=== PATIENT | male | born 1975 | race Caucasian/White ===

== ENCOUNTER → 2021-12-20 | Outpatient (CLI) | payer BC ==
[2021-12-20 16:31] LABS: African American GFR (CKD) 75.8 (60.0-200.0); BUN/Creat Ratio 22.38 Ratio (12.00-20.00); Blood Urea Nitrogen 29.1 mg/dL (9.0-27.0); Non-African American GFR(CKD) 65.4 (60.0-200.0); Potassium 5.1 mmol/L (3.5-5.5)
== END | disposition home or self-care (01) ==
LOC: LABWHC1 09:20
PROVIDERS: ATTEND Internal Medicine Clinical Cardiac Electrophysiology
DX: I10 Essential (primary) hypertension (principal)
CPT/HCPCS: 36415; 80048

== ENCOUNTER → 2022-02-06 | Outpatient (CLI) | payer BC ==
--- NOTE | 2022-02-06 11:26 | P.SLEEP ---
History of Present Illness DATE: 02/06/2022 CONSULTATION/NEW PATIENT EVALUATION HISTORY OF PRESENT ILLNESS/SLEEP-WAKE EVALUATION: 46year old gentleman had been evaluated in the sleep center for possible obstructive sleep apnea hypopnea syndrome. SLEEP SCHEDULE: Usually sleep schedule 7 days a week from 11 PM to 6:30 AM. FALLING ASLEEP: No problems with the falling asleep, although patient has TV set and bedroom. DURING SLEEP: Patient snores according to his . He rarely wakes up from sleep. No history of hypnogogical hallucinations, sleep paralysis, or cataplexy. DURING THE DAY/WAKE STATE: Patient denies significant sleepiness. [place] sleepiness scale is to. He doesn't take naps. PAST MEDICAL HISTORY: CHF possibly secondary to a viral infection with coxsackie and parvovirus in November 2021, hypertension. PAST SURGICAL HISTORY: [place] tooth removed. MEDICATIONS: Eliquis 5 mg twice a day, entresto 24 mg twice a day, carvedilol 12.5 mg twice a day, spironolactone 25 mg once a day, furosemide 20 mg once a day. SOCIAL HISTORY: Negative for smoking smoking, alcohol consumption occasional. FAMILY HISTORY: Cancer, heart problems. REVIEW OF SYSTEMS: Snoring. No fevers. No double vision. No recent chest pain. No shortness of breath. No abdominal pain. No bleeding episodes. No blood in urine. No seizure episodes. PHYSICAL EXAMINATION: GENERAL: A pleasant patient without any distress. VITAL SIGNS: BP 152/106 , HR 87 , RR 18 , weight to 21.6 pounds, height 5 foot 11.25 inches, body mass index 30.6 . HEENT: PERRLA, EOMI. Evaluation of oropharynx showed tongue protrudes midline, low position of soft palate Mallampati 4. Retrognathia 2 mm. NECK: Supple. No JVD. Thyroid is not palpable. 17-1/3 inches in circumference. LUNGS: Clear to percussion and to auscultation. Good air exchange. No wheezing or rhonchi. HEART: S1, S2 regular. No murmurs, gallops or rubs. ABDOMEN: Soft and nontender. Bowel sounds are present. No organomegaly appreciated. EXTREMITIES: No clubbing or cyanosis. 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 Cranial nerves 2 to 7 intact. There is no fasciculation or atrophy noted. No focal deficits observed. ASSESSMENT: 1. Snoring, extremely low position of soft palate Mallampati 4, wide neck 17-1/3 inches in circumference, retrognathia. Possible obstructive sleep apnea hypopnea syndrome. 2. Mild obesity fallowing body mass index criteria. Body mass index 30.6. 3 history of CHF. 4. History of viral infection with parvovirus and coxsackievirus involving heart in November 2021. 5 hypertension. PLAN: 1. Home sleep apnea test. 2. CPAP/BiPAP titration if sleep study confirms obstructive sleep apnea- hypopnea syndrome. 3. Preferable position during sleep on the side. 4. No driving if patient feels any sleepiness. Patient is aware of civil and criminal liability for unsafe driving. 5. Sleep hygiene with regular sleep time for at least 7.5-8 hours. 6. Watching weight. Thank you very much for referring this patient for consultation. Sincerely, Rosalio Neil MD, PhD, FAASM. Diplomat of [place] [employer], Sleep Medicine Board by [place] [employer] [place] [employer] Operator of [facility] [place] Past Medical History Past Medical History: No Reported History History of Any Multi-Drug Resistant Organisms: None Reported Past Surgical History: No Surgical Hx Reported Past Anesthesia/Blood Transfusion Reactions: No Reported Reaction Past Psychological History: No Psychological Hx Reported Smoking Status: Never smoker Past Alcohol Use History: None Reported Past Drug Use History: None Reported Medications and Allergies Home Medications Medication Instructions Recorded Confirmed Type Apixaban [Eliquis] 5 mg PO BID #60 tab 11/29/21 Rx Furosemide [Lasix] 20 mg PO DAILY #90 tab 11/29/21 Rx Sacubitril/Valsartan [Entresto 24 1 each PO BID #60 tab 11/29/21 Rx mg-26 mg Tablet] Spironolactone [Aldactone] 25 mg PO DAILY #90 tab 11/29/21 Rx carvediloL [Coreg] 6.25 mg PO BID-W/MEALS #60 tab 11/29/21 Rx Allergies Allergy/AdvReac Type Severity Reaction Status Date / Time No Known Allergies Allergy Verified 11/26/21 17:41 Sleep Note - Sleep Note Sleep Note: Temperature: Pulse Rate: Respiratory Rate: Blood Pressure: SpO2: Height: Weight: BMI: Neck Circumference:
== END ==
LOC: SLEEP 10:22
PROVIDERS: ATTEND Internal Medicine
DX: G47.33 Obstructive sleep apnea (adult) (pediatric) (principal); E66.8 Other obesity; Z68.30 Body mass index [BMI] 30.0-30.9, adult; I10 Essential (primary) hypertension; Z86.79 Personal history of other diseases of the circulatory system; Z86.19 Personal history of other infectious and parasitic diseases
CPT/HCPCS: 99211

== ENCOUNTER → 2022-03-21 | Outpatient (CLI) | payer BC ==
[2022-03-22 02:32] LABS: African American GFR (CKD) 97.5 (60.0-200.0); Anion Gap 13.2 mmol/L (10.00-18.00); BUN/Creat Ratio 18.76 Ratio (12.00-20.00); Blood Urea Nitrogen 19.7 mg/dL (9.0-27.0); Calcium 9.6 mg/dL (8.7-10.3); Carbon Dioxide 18.8 mmol/L (20.0-27.5); Magnesium 2.1 mg/dL (1.5-2.4); Non-African American GFR(CKD) 84.1 (60.0-200.0); Potassium 4.6 mmol/L (3.5-5.5)
[2022-03-24 13:34] LABS: Parvovirus B-19 IgG Antibodies 5.92 INDEX (<=0.90); Parvovirus B-19 IgM Antibodies 0.57 INDEX (<=0.90)
== END | disposition home or self-care (01) ==
LOC: LABWHC1 12:52
PROVIDERS: ATTEND Nurse Practitioner Adult Health
DX: I10 Essential (primary) hypertension (principal); I42.8 Other cardiomyopathies
CPT/HCPCS: 36415; 80048; 83735; 86658; 86747

== ENCOUNTER → 2022-07-17 | Outpatient (CLI) | payer BC ==
--- NOTE | 2022-07-17 15:36 | P.PN ---
Subjective DATE: 07/17/2022 FOLLOW UP VISIT. Patient with obstructive sleep apnea hypopnea syndrome return to sleep center for follow-up visit. Recently patient had sleep study which documented obstructive sleep apnea hypopnea syndrome. Patient was initiated on PAP therapy and today is first visit after treatment was started. I explained results of sleep studies to patient in details. Patient was able to use PAP equipment every night for the whole night. The patient does not have significant problems with the mask, PAP pressure and humidification. [place] sleepiness scale is 4. Recently patient ejection fraction improved from 10% to around 51%. I checked information from PAP unit. PAP unit pressure 5-12, average 9.9 cm H2O. Usage in May is 79 % , average 4.5 hours per night. Leak is 5.0 l/m, which is in acceptable range. Apnea Hypopnea Index is 1.2, which is normal. During physical exam: GENERAL: A pleasant patient without any distress. VITAL SIGNS: BP 177/95, HR 95, RR 16, weight 236.6, temperature 98.4, oxygen saturation at room air 95. HEENT: PERRLA, EOMI.low position of soft palate, Mallapati 4 . NECK: Supple. No JVD. LUNGS: Clear to percussion and to auscultation. Good air exchange. No wheezing or rhonchi. HEART: S1, S2 regular. ABDOMEN: Soft and nontender.[] EXTREMITIES: No clubbing or cyanosis. TIMBER FALLER: Awake, alert, and oriented x3. No focal deficit. Impressions: 1. Obstructive sleep apnea-hypopnea syndrome. Patient demonstrated borderline compliance with treatment, benefiting from treatment. 2. Obesity, patient increased his weight on 20 pounds comparing to the previous visit. 3. History of viral myocarditis in 2021, ejection fraction normalized. 4. Hypertension. Plan: 1. Continue using PAP equipment every night for the whole night. 2. To change air filter at least 1-2 times per month. 3. PAP unit should stay lower then position of the head. 4. Advised patient to remove all remaining water from humidifier canister daily and make it dry after each usage. Refill canister with fresh distilled water before each usage. 5. Sleep hygiene with regular time in bed for at least 8 hours. 6. Precautions related to driving. No driving if feel any sleepiness. 7. I will maintain prescription for PAP supplies including mask, tube, filters. 8. Watching weight. 9. Follow up visit in 6 months or earlier if patient has any problems. Thank you very much for allowing me to participate in the management of your patient. Rosalio Neil MD, PhD, FAASM. Diplomat of [place] [employer], Sleep Medicine Board by [place] [employer] Manager of [facility] [place]
== END | disposition home or self-care (01) ==
LOC: SLEEP 13:52
PROVIDERS: ATTEND Internal Medicine
DX: G47.33 Obstructive sleep apnea (adult) (pediatric) (principal); E66.9 Obesity, unspecified; I10 Essential (primary) hypertension; Z99.89 Dependence on other enabling machines and devices; Z86.79 Personal history of other diseases of the circulatory system

== ENCOUNTER 2023-06-16 22:54 | Emergency (ER) | payer BC ==
[2023-06-16] MEDS: FLUORESCEIN STRIPS 1 MG STRIP LEFT EYE ONE (23:31)
[2023-06-16] MEDS: PROPARACAINE 0.5% OPHTH DROPS 15 ML BTL BOTH EYES SCH (23:31)
--- NOTE | 2023-06-16 23:43 | ED ---
General Adult HPI - General Chief complaint: Eye Problems Stated complaint: FB in left eye Time Seen by Provider: 06/16/23 23:18 Source: patient, RN notes reviewed, old records reviewed Mode of arrival: ambulatory Limitations: no limitations - History of Present Illness Initial comments: 48-year-old male presents with left eye irritation and pain. 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 His eye has been irritated and draining. No other injury reported. Patient uncertain of last tetanus. - Related Data Previous Rx's Medication Instructions Recorded Apixaban [Eliquis] 5 mg PO BID #60 tab 11/29/21 Furosemide [Lasix] 20 mg PO DAILY #90 tab 11/29/21 Sacubitril/Valsartan [Entresto 24 1 each PO BID #60 tab 11/29/21 mg-26 mg Tablet] Spironolactone [Aldactone] 25 mg PO DAILY #90 tab 11/29/21 carvediloL [Coreg] 6.25 mg PO BID-W/MEALS #60 tab 11/29/21 Allergies Allergy/AdvReac Type Severity Reaction Status Date / Time No Known Allergies Allergy Verified 06/16/23 23:13 Review of Systems ROS Statement: Those systems with pertinent positive or pertinent negative responses have been documented in the HPI. ROS Other: All systems not noted in ROS Statement are negative. Past Medical History Past Medical History: No Reported History History of Any Multi-Drug Resistant Organisms: None Reported Past Surgical History: No Surgical Hx Reported Past Anesthesia/Blood Transfusion Reactions: No Reported Reaction Past Psychological History: No Psychological Hx Reported Smoking Status: Never smoker Past Alcohol Use History: None Reported Past Drug Use History: None Reported General Exam Limitations: no limitations General appearance: alert, in no apparent distress Head exam: Present: atraumatic, normocephalic Eye exam: Present: other (Metallic foreign body embedded within the left upper eyelid, associated corneal abrasion. Negative Lukas's.) Respiratory exam: Absent: respiratory distress Cardiovascular Exam: Present: regular rate, normal rhythm GI/Abdominal exam: Absent: distended Extremities exam: Present: normal inspection Course Vital Signs 06/16/23 23:11 Temperature 98.3 F Pulse Rate 85 Respiratory 18 Rate Blood Pressure 174/97 O2 Sat by Pulse 97 Oximetry Procedures - Forgein Body Removal Eye Site: Left Anesthetic Used: Proparacaine Eye Exam Technique: Urban Lamp, Fluorescein Foreign Body Suspected: Metal Forgein Body Removal Technique: Cotton Swab Remaining Debris: No Patient Tolerated: well Medical Decision Making - Medical Decision Making Was pt. sent in by a medical professional or institution (KRUNAL Perry, PHOTOENGRAVER APPRENTICE, urgent care, hospital, or halfway...) When possible be specific @ -No Did you speak to anyone other than the patient for history (EMS, parent, family, police, friend...)? What history was obtained from this source @ -No Did you review nursing and triage notes (agree or disagree)? Why? @ -I reviewed and agree with nursing and triage notes Were old charts reviewed (outside hosp., previous admission, EMS record, old EKG, old radiological studies, urgent care reports/EKG's, halfway records)? Report findings @ -No old charts were reviewed Differential Diagnosis (chest pain, altered mental status, abdominal pain women, abdominal pain men, vaginal bleeding, weakness, fever, dyspnea, syncope, headache, dizziness, GI bleed, back pain, seizure, CVA, palpatations, mental health, musculoskeletal)? @ -Intraocular foreign body, corneal abrasion, angle-closure glaucoma EKG interpreted by me (3pts min.). @ -As above X-rays interpreted by me (1pt min.). @ -None done CT interpreted by me (1pt min.). @ -None done U/S interpreted by me (1pt. min.). @ -None done What testing was considered but not performed or refused? (CT, X-rays, U/S, labs)? Why? @ -None What meds were considered but not given or refused? Why? @ -None Did you discuss the management of the patient with other professionals (professionals i.e. KRUNAL Perry, PHOTOENGRAVER APPRENTICE, lab, RT, psych nurse, health and social care teacher, sound person, teacher, youth probation officer, transplant case manager)? Give summary @ -No Was smoking cessation discussed for >3mins.? @ -No Was critical care preformed (if so, how long)? @ -No Were there social determinants of health that impacted care today? How? (Homelessness, low income, unemployed, alcoholism, drug addiction, transportation, low edu. Level, literacy, decrease access to med. care, fpc, rehab)? @ -No Was there de-escalation of care discussed even if they declined (Discuss DNR or withdrawal of care, Hospice)? DNR status @ -No What co-morbidities impacted this encounter? (DM, HTN, Smoking, COPD, CAD, Cancer, CVA, ARF, Chemo, Hep., AIDS, mental health diagnosis, sleep apnea, morbid obesity)? @ -None Was patient admitted / discharged? Hospital course, mention meds given and route, prescriptions, significant lab abnormalities, going to OR and other pertinent info. @ -[48-year-old male with metallic foreign body in the left upper eyelid and associated underlying corneal abrasion. Eye exam shows corneal abrasion without corneal laceration, negative Lukas's test. Patient feels 100% better after proparacaine. He is given erythromycin ointment. His tetanus is updated. He will follow-up with ophthalmology for reevaluation. Undiagnosed new problem with uncertain prognosis? @ -No Drug Therapy requiring intensive monitoring for toxicity (Heparin, Nitro, Insulin, Cardizem)? @ -No Were any procedures done? @Yes, foreign body removed from the left eyelid Diagnosis/symptom? @ -[Corneal abrasion secondary to eyelid foreign body Acute, or Chronic, or Acute on Chronic? @ -Acute Uncomplicated (without systemic symptoms) or Complicated (systemic symptoms)? @ -[default Side effects of treatment? @ -No Exacerbation, Progression, or Severe Exacerbation? @ -No Poses a threat to life or bodily function? How? (Chest pain, [place], [place], pneumonia, PE, COPD, DKA, ARF, appy, cholecystitis, CVA, Diverticulitis, Homicidal, Suicidal, threat to staff... and all critical care pts) @ -No Disposition Clinical Impression: Corneal abrasion Disposition: HOME SELF-CARE Condition: Good Instructions (If sedation given, give patient instructions): Corneal Abrasion (ED) Is patient prescribed a controlled substance at d/c from ED?: No Referrals: Ayla Fitzpatrick DO [Primary Care Provider] - 1-2 days Jaqueline Rizo MD [STAFF PHYSICIAN] - 1-2 days Time of Disposition: 23:42
[2023-06-16] MEDS: ERYTHROMYCIN 5 MG/GM OPHTH OINT 1 GM TUBE LEFT EYE SCH (23:55)
[2023-06-16] MEDS: DIPH,PERTUS(ACELL)TETVAC-LF 0.5 ML VIAL IM ONE (23:55)
[2023-06-17] MEDS ORDERED: ERYTHROMYCIN 5 MG/GM OPHTH OINT 3.5 GM TUBE LEFT EYE SCH
[2023-06-17 00:16] VITALS: BP 151/97; PULSE 65; RESP 19; TEMP 98.3
== END 2023-06-16 23:59 | disposition home or self-care (01) ==
LOC: EC 22:54
DX: S05.02XA Injury of conjunctiva and corneal abrasion without foreign body, left eye, initial encounter (principal); Z23 Encounter for immunization; X58.XXXA Exposure to other specified factors, initial encounter
CPT/HCPCS: 65220; 90471; 90715; 99283